=== PATIENT | female | born 1985 | race Caucasian/White ===

== ENCOUNTER 2016-10-29 23:57 | Emergency (ER) | payer OTHER ==
[~2016-10-29] VITALS: Ht 170.2 cm; Wt 66.8 kg
[~2016-10-29 23:57] MED LIST: IBUP-1222 PO; OXYC-302 PO
[2016-10-29 23:59] VITALS: BP 117/75
[2016-10-30 00:54] LABS: ASPARTATE AMINO TRANSFERASE 13 U/L (15-37); BLOOD UREA NITROGEN 14 mg/dL (7-18)
== END 2016-10-30 02:31 | disposition home or self-care (01) ==
LOC: ED 23:59
DX: N83.291 Other ovarian cyst, right side (principal)
CPT/HCPCS: 36415; 76830; 80053; 81003; 84703; 85025

== ENCOUNTER 2016-11-18 00:44 | Emergency (ER) | payer OTHER ==
[~2016-11-18] VITALS: Ht 170.2 cm; Wt 67.2 kg
[2016-11-18 00:46] VITALS: BP 114/74
== END 2016-11-18 01:41 | disposition home or self-care (01) ==
LOC: ED 01:35
DX: N83.201 Unspecified ovarian cyst, right side (principal)
CPT/HCPCS: 99281

== ENCOUNTER 2016-12-04 20:29 | Emergency (ER) | payer OTHER ==
[~2016-12-04] VITALS: Ht 170.2 cm; Wt 66.9 kg
[2016-12-04 20:31] VITALS: BP 119/83
[2016-12-04] MEDS ORDERED: ACETAMINOPHEN 500 MG TABLET PO ONE (21:00)
[2016-12-04] MEDS ORDERED: ACETAMINOPHEN 500 MG TABLET ONE (21:04)
== END 2016-12-04 22:22 | disposition home or self-care (01) ==
LOC: ED 22:00
DX: S60.474A Other superficial bite of right ring finger, initial encounter (principal); W54.0XXA Bitten by dog, initial encounter; Y93.89 Activity, other specified; Y92.89 Other specified places as the place of occurrence of the external cause; Y99.8 Other external cause status
CPT/HCPCS: 29125

== ENCOUNTER 2017-02-05 23:21 | Emergency (ER) | payer OTHER ==
[~2017-02-05] VITALS: Ht 170.2 cm; Wt 66.0 kg
[2017-02-06 01:35] VITALS: BP 145/67
== END 2017-02-06 01:45 | disposition home or self-care (01) ==
LOC: ED 23:59
DX: J20.9 Acute bronchitis, unspecified (principal); M94.0 Chondrocostal junction syndrome [Tietze]
CPT/HCPCS: 71020; 93005; 99284